=== PATIENT | female | born 1985 | race African-American/Black ===

== ENCOUNTER 2016-05-18 20:31 | Emergency (ER) | payer OTHER ==
[~2016-05-18] VITALS: Ht 149.9 cm; Wt 59.6 kg
[~2016-05-18 20:31] MED LIST: REGLAN10 MG PO; ZANTAC300 MG PO; ZOFRAN4 MG PO
[2016-05-18 20:33] VITALS: BP 117/72
== END 2016-05-18 22:42 | disposition left against medical advice (07) ==
LOC: EME 20:31
DX: O20.9 Hemorrhage in early pregnancy, unspecified (principal); Z53.21 Procedure and treatment not carried out due to patient leaving prior to being seen by health care provider
CPT/HCPCS: 81003; 84702; 85027

== ENCOUNTER 2016-05-20 09:45 | Emergency (ER) | payer BC ==
[~2016-05-20] VITALS: Ht 149.9 cm; Wt 59.3 kg
[2016-05-20 10:23] LABS: ADD MIUA? YES; BILIRUBIN NEGATIVE; BLOOD MODERATE; COLOR YELLOW ((YELLOW)); GLUCOSE (STRIP) NEGATIVE; KETONES NEGATIVE; LEUKOCYTES NEGATIVE; NITRITE NEGATIVE; PROTEIN (STRIP) 30; SPECIFIC GRAVITY 1.023 (1.000-1.030); UROBILINOGEN 0.2 MG/DL (0.2-1.0)
[2016-05-20 10:30] LABS: HEMATOCRIT 33.8 % (36.0-46.0); MCH 32.1 PG (29.0-34.0); MCHC 32.8 G/DL (30.0-36.0); MCV 97.7 FL (83-99); PLATELET COUNT 242 K/uL (156-360); RBC DIS.WIDTH-CV 12.3 % (11.8-14.6); RBC DIS.WIDTH-SD 44.2 % (39-53); RED BLOOD COUNT 3.46 M/uL (3.80-5.20); WHITE BLOOD COUNT 8.6 K/uL (4.1-10.2)
[2016-05-20 10:34] LABS: BACTERIA RARE /HPF; EPITHELIAL CELLS 1+ /HPF; GRANULAR CASTS 0-5 /LPF; MUCUS 4+ /LPF; RED BLOOD CELLS 0-5 /HPF (0-5); WHITE BLOOD CELLS 0-5 /HPF (0-5)
[2016-05-20 11:14] LABS: ANION GAP 6 MEQ/L (2-14); CHLORIDE 108 MEQ/L (99-109); POTASSIUM 3.7 MEQ/L (3.7-5.4); SAMPLE HEMOLYSIS CHECK 0; SAMPLE ICTERIC CHECK 0; SAMPLE LIPEMIA CHECK 0; SODIUM 138 MEQ/L (136-147); TOTAL BILIRUBIN 0.6 MG/DL (0.0-1.0)
[2016-05-20 11:20] LABS: ALKALINE PHOSPHATASE 18 IU/L (3-129); GFR ESTIMATE (CALCULATED) > 59 mL/min/; GLUCOSE 113 mg/dL (70-99); UREA NITROGEN (BUN) 12 mg/dL (9-23)
[2016-05-20 11:24] LABS: QUANTITATIVE HCG 661.7 MIU/ML
[2016-05-20] MEDS ORDERED: TORADOL10 MG PO (13:11)
[2016-05-20] MEDS ORDERED: ZOFRAN ODT4 MG PO (13:11)
[2016-05-20 13:42] VITALS: BP 122/72
== END 2016-05-20 13:43 | disposition home or self-care (01) ==
LOC: EME 09:45
PROVIDERS: Nurse Practitioner Family
DX: R10.31 Right lower quadrant pain (principal); R78.89 Finding of other specified substances, not normally found in blood; N93.9 Abnormal uterine and vaginal bleeding, unspecified; R11.10 Vomiting, unspecified
CPT/HCPCS: 76801; 80053; 81003; 84702; 85027; 99281; 99285; J2270; J2405; J7030

== ENCOUNTER 2016-05-24 10:07 | Day surgery (SDC) | payer BC ==
[~2016-05-24] VITALS: Ht 149.9 cm; Wt 59.5 kg
[~2016-05-24 10:07] MED LIST changes: +TORADOL10 MG PO; +ZOFRAN ODT4 MG PO
[2016-05-24 10:47] LABS: EOSINOPHIL (%) 0.4 % (0-5); HEMATOCRIT 36.5 % (36.0-46.0); IMMATURE GRANULOCYTE (%) 0.3 % (0.0-0.7); INSTRUMENT ABS NEUTROPHIL CT 5.8 K/uL; LYMPHOCYTE COUNT 1.2 K/uL (1.0-2.8); MCH 31.4 PG (29.0-34.0); MCHC 32.9 G/DL (30.0-36.0); MCV 95.5 FL (83-99); MEAN PLAT.VOLUME 10.7 uM^3 (9.5-12.4); MONOCYTE (%) 6.9 % (3-12); MONOCYTE COUNT 0.5 K/uL (0-0.8); NEUTROPHIL COUNT 5.8 K/uL (1.8-6.4); PLATELET COUNT 216 K/uL (156-360); RBC DIS.WIDTH-CV 12.4 % (11.8-14.6); RBC DIS.WIDTH-SD 42.6 % (39-53); RED BLOOD COUNT 3.82 M/uL (3.80-5.20); WHITE BLOOD COUNT 7.6 K/uL (4.1-10.2)
[2016-05-24 10:55] LABS: CHLORIDE 110 mEq/L (99-109); SODIUM 143 mEq/L (136-147)
[2016-05-24 10:56] LABS: GLUCOSE 85 mg/dL (70-99)
[2016-05-24 10:58] LABS: ANION GAP 16 MEQ/L (2-14)
[2016-05-24] MEDS ORDERED: ADVIL,NUPRIN,M200 MG PO (10:59)
[2016-05-24] MEDS ORDERED: DAILY VITE1 EAC1 PO (10:59)
[2016-05-24 11:00] LABS: GFR ESTIMATE (CALCULATED) > 59 mL/min/
[2016-05-24 11:01] LABS: UREA NITROGEN (BUN) 13 mg/dL (9-23)
[2016-05-24 11:09] LABS: QUANTITATIVE HCG 432.1 MIU/ML
[2016-05-24] MEDS ORDERED: HYDROCODON-ACE1 EAC7 PO (12:38)
[2016-05-24] MEDS ORDERED: IBUPROFEN800 MG PO (12:38)
[2016-05-24 13:31] VITALS: BP 134/82
[2016-05-24 14:33] VITALS: BP 128/78
[2016-05-24 16:00] VITALS: BP 102/63
== END 2016-05-24 16:12 | disposition home or self-care (01) ==
LOC: EME 10:07 → SDC 11:11
PROVIDERS: Emergency Medicine
PROC: 0UT74ZZ Resection of Bilateral Fallopian Tubes, Percutaneous Endoscopic Approach (ICD-10-PCS; principal; 2016-05-24)
DX: O00.10 Tubal pregnancy without intrauterine pregnancy (principal); N99.89 Other postprocedural complications and disorders of genitourinary system; Z98.51 Tubal ligation status; Z82.49 Family history of ischemic heart disease and other diseases of the circulatory system
CPT/HCPCS: 80048; 84702; 85025; 86900; 86901; 88304; 99281; 99284; J0330; J1100; J1170; J1885; J2175; J2250; J2405; J2710; J3010; J7030; S0020